=== PATIENT | female | born 1960 | race Hispanic/Latino ===

== ENCOUNTER 2025-04-07 13:02 | Emergency (ER) | payer MEDICARE ==
[~2025-04-07] VITALS: Ht 165.1 cm; Wt 68.0 kg
[2025-04-07 14:13] LABS: IMMATURE GRANULOCYTE ABSOLUTE 0.07 K/uL (0-1); NUCLEATED RED BLOOD CELLS 0.0 % (0.0-0.19); PLATELET COUNT (AUTO) 363 K/uL (130-400); RED BLOOD CELL COUNT(AUTO) 4.33 MIL/uL (4.00-5.50); RED CELL DISTRIBUTION WIDTH 13.6 % (11.0-15.5); WHITE BLOOD COUNT (AUTO) 10.2 K/uL (4.8-10.8)
[2025-04-07] MEDS: 0.9%NACL 1000ML 1,000 ML IV STA (14:15)
[2025-04-07] MEDS: FAMOTIDINE 20MG VIAL IV ONE (14:15)
[2025-04-07 14:24] LABS: CREATININE 0.8 mg/dL (0.5-1.0); GLOMERULAR FILTR. RATE CALC 81.0 mL/min (>90); GLUCOSE,RANDOM 115.0 mg/dL (70-105); SODIUM SERUM 136.0 mmol/L (136-145); UREA NITROGEN, BLOOD 15.0 mg/dL (7-18)
--- NOTE | 2025-04-07 14:32 | ERN ---
ED Note History of Present Illness Stated Complaint: NAUSEA/VOMITING Chief Complaint: Nausea,Vomiting,Diarrhea Time Seen by MD: 13:13 Time Seen by Midlevel: 13:15 Dictation: 64-year-old female complaining of epigastric burning sensation with nausea and vomiting. Patient states these symptoms started shortly after she ate beef with a potatoes. Patient also states she has a history of fissures in her stomach. States her last BM was yesterday, normal no melena or bright red stools and no watery stools. Allergies: Coded Allergies: No Known Drug Allergies (Unverified Allergy, Unknown, 04/07/25) Past Medical History Past Medical History: Other Additional Past Medical Hx: EPILEPSY Surgical History: None Review of System Dictation Constitutional: Negative for fever,chills, and weight loss Eyes: Negative for injury, pain,redness, and discharge ENT: Negative for injury,pain or swelling Cardiovascular: Negative for chest pain, palpitations, and edema Respiratory: Negative for shortness of breath, cough, and wheezing, Abdomen/GI: Abdominal pain, nausea and vomiting Back: Negative for injury and pain : Negative for injury, bleeding and discharge MS/Extremity: Negative for injury and deformity Skin: Negative for rash, and discoloration Neuro: Negative for headache, weakness, numbness, tingling, and seizure Psych: Negative for suicide ideation, homicidal ideation, and hallucinations Review of Systems: was completed Initial Vital Sign VS Vital Signs Date Time Temp Pulse Resp B/P (MAP) Pulse Ox O2 Delivery O2 Flow Rate FiO2 04/07/25 13:03 97.5 90 13 154/91 98 Room Air 0 04/07/25 13:34 21 Physical Exam Dictation General: awake, alert, NAD Head/Face: Normocephalic, atraumatic Eyes: PERRL, EOMI, vision at baseline ENT: oral cavity clear, TMs clear, no signs of infection Neck: Trachea midline, supple, no nuchal rigidity Cardiovascular: RRR, normal S1/S2, No MRGs, no JVD Respiratory: CTAB, no respiratory distress, No rales or wheezes Abdomen: Soft, non-tender, non-distended, normal bowel sounds, no guarding or rebound. Skin: Warm, dry, normal turgor, no rash MS/Extremity: Pulses equal, no cyanosis, neurovascular intact, FROM Neuro: COAx4, GCS 15, strength 5/5, CN 2-12 intact, normal cerebellar exam, normal gait, Psych: Normal behavior, mood, and affect normal Results (Laboratory/Radiology) Laboratory/Radiology Laboratory Tests Test 04/07/25 14:06 04/07/25 15:21 White Blood Count 10.2 K/uL (4.8-10.8) Red Blood Count 4.33 MIL/uL (4.00-5.50) Hemoglobin 13.3 g/dL (12.0-16.0) Hematocrit 40.8 % (36-48) Mean Corpuscular Volume 94.2 fL (79-99) Mean Corpuscular Hemoglobin 30.7 pg (27.0-33.0) Mean Corpuscular Hemoglobin Concent 32.6 g/dL (32.0-36.0) Red Cell Distribution Width 13.6 % (11.0-15.5) Platelet Count 363 K/uL (130-400) Mean Platelet Volume 8.0 fL (7.5-10.5) Immature Granulocyte % (Auto) 0.7 % (0-1) Neutrophils (%) (Auto) 83.3 % (40.0-77.0) H Lymphocytes (%) (Auto) 9.5 % (21.0-51.0) L Monocytes (%) (Auto) 6.2 % (3.0-13.0) Eosinophils (%) (Auto) 0.1 % (0.0-8.0) Basophils (%) (Auto) 0.2 % (0.0-5.0) Neutrophils # (Auto) 8.5 K/uL (1.8-7.7) H Lymphocytes # (Auto) 1.0 K/uL (1.0-4.8) Monocytes # (Auto) 0.6 K/uL (0.1-1.0) Eosinophils # (Auto) 0.01 K/uL (0.00-0.70) Basophils # (Auto) 0.02 K/uL (0.00-0.20) Absolute Immature Granulocyte (auto 0.07 K/uL (0-1) Nucleated Red Blood Cells 0.0 % (0.0-0.19) White Cell Morphology Comment See comments Sodium Level 136 mmol/L (136-145) Potassium Level 4.0 mmol/L (3.5-5.1) Chloride Level 103 mmol/L (101-111) Carbon Dioxide Level 27 mmol/L (21-32) Blood Urea Nitrogen 15 mg/dL (7-18) Creatinine 0.8 mg/dL (0.5-1.0) Glomerular Filtration Rate Calc 81 mL/min (>90) Random Glucose 115 mg/dL (70-105) H Total Calcium 8.2 mg/dL (8.5-10.1) L Total Bilirubin 0.7 mg/dL (0.2-1.0) Direct Bilirubin 0.1 mg/dL (0.0-0.3) Aspartate Amino Transf (AST/SGOT) 19 U/L (10-37) Alanine Aminotransferase (ALT/SGPT) 17 U/L (12-78) Alkaline Phosphatase 62 U/L (50-136) Troponin I High Sensitivity 5 ng/L (4-50) Total Protein 6.8 g/dL (6.0-8.3) Albumin 3.3 g/dL (3.5-5.0) L Lipase 41 U/L (16-77) Urine Color LIGHT-YELLOW (YELLOW) Urine Appearance CLEAR (CLEAR) Urine pH 6.5 (5.0-8.0) Urine Specific [place] 1.017 (1.001-1.031) Urine Protein NEGATIVE mg/dL (NEGATIVE) Urine Glucose (UA) NEGATIVE mg/dL (NEGATIVE) Urine Ketones NEGATIVE mg/dL (NEGATIVE) Urine Occult Blood NEGATIVE (NEGATIVE) Urine Nitrate NEGATIVE (NEGATIVE) Urine Bilirubin NEGATIVE mg/dL (NEGATIVE) Urine Urobilinogen 0.2 mg/dL (0.2-1.0) Urine Leukocyte Esterase NEGATIVE [place]/uL Labs Reviewed?: Yes EKG Comment: EKGs did not at 2:06 p.m.. Sinus tachycardia at a rate of 105. Biatrial enlargement. No STEMI interpreted by ER MD. X-RAY Comment: [place] [id number] [place] [id number] IMAGING REPORT Signed PATIENT: FRANCIS SCHROEDER MR#: [id number] : 1960 SEX: F AGE: 64 LOCATION: ED ORDER [id number] STATUS: REG ER [facility] REPORT#: [id number] SERVICE [id number] REASON: cough ORDERING PHYSICIAN: WILLOW CARRINGTON CNP PROCEDURE: CXR1VW - CHEST 1VW STUDY: X-RAY OF THE CHEST, 1 VIEW HISTORY: Cough. TECHNIQUE: A single frontal view of the chest is submitted for interpretation. COMPARISON: None provided. FINDINGS: Pulmonary dow: Patchy airspace opacities are present in the right middle lobe, compatible with an infectious or inflammatory process. The remainder of the lung dow are clear without focal consolidation elsewhere. No large pleural effusion or pneumothorax is identified. Cardiac silhouette: Cardiac silhouette is within normal limits in size and contour on this projection. Mediastinum and jennifer: Bilateral hilar fullness is present, more pronounced on the right, which may reflect hilar vascular prominence and/or reactive lymphadenopathy in the setting of infection. No obvious mediastinal widening is seen. Osseous structures: Visualized ribs, clavicles, scapulae, and thoracic spine show no acute fracture or destructive osseous lesion. Miscellaneous: Diaphragms and costophrenic angles are clear. No subdiaphragmatic free air is seen. No indwelling lines or tubes are identified. IMPRESSION: * Patchy airspace opacities in the right middle lobe, most consistent with pneumonia in the appropriate clinical context of cough; recommend clinical correlation and follow-up chest radiograph in 46 weeks to document resolution, particularly if symptoms persist or risk factors for nonresolving pneumonia are present. * Bilateral hilar fullness, right greater than left, likely reflecting vascular prominence and/or reactive hilar lymphadenopathy related to the acute parenchymal process; if hilar prominence persists after radiographic resolution of the infiltrate, further evaluation with chest CT could be considered based on clinical judgment. * No radiographic evidence of large pleural effusion or pneumothorax on this single-view chest radiograph. /[place] DICTATED BY: DIANE ROA MD DATE: 04/07/251602 ELECTRONICALLY SIGNED BY: DIANE ROA MD DATE: 04/07/251602 CT Scan Comment: [address] [id number] IMAGING REPORT Signed PATIENT: FRANCIS SCHROEDER MR#: [id number] : 1960 SEX: F AGE: 64 LOCATION: EDH ORDER 1401 STATUS: REG ER REPORT#: [id number] SERVICE 1359 REASON: n/v, hx of fissures ORDERING PHYSICIAN: WILLOW CARRINGTON CNP PROCEDURE: ABD PEL W - CT ABDOMEN/PELVIS W/CONTRAST EXAM: CT SCAN OF THE ABDOMEN AND PELVIS WITH CONTRAST Clinical statement: Nausea and vomiting; history of fissures. STUDY PROTOCOL: CT radiation dose protocol was performed in accordance with the principles of ALARA. A multislice CT scan of the abdomen and pelvis was performed with intravenous contrast. Sections were obtained from the diaphragms to the inguinal region. Study quality is adequate without significant motion or streak artifact. RADIATION DOSE: CTDIvol 14.20 mGy; DLP 595.40 mGycm. CONTRAST: Standard dose of intravenous contrast administered. COMPARISON: None provided. FINDINGS: LUNG BASE: The visualized lung bases are clear. No pleural effusion is seen. LIVER: Normal in size and contour with homogeneous enhancement. No focal hepatic lesion or calcification is identified. No intrahepatic biliary ductal dilatation. Portal vein and hepatic veins are patent with normal caliber. GALL BLADDER: Gall bladder is normally distended with non-thickened wall and smooth margins. No cholelithiasis, intraluminal mass, or pericholecystic fluid. PANCREAS: Normal in size, contour, and enhancement. No pancreatic duct dilatation, mass, peripancreatic stranding, or fluid collection. SPLEEN: Normal in size with homogeneous enhancement and no focal lesion. KIDNEYS: Both kidneys enhance symmetrically and are normal in size and contour. No hydronephrosis, nephrolithiasis, or solid renal mass. Non-obstructive parapelvic cysts are present bilaterally. Visualized ureters are normal in caliber without obstructing calculus or intraluminal filling defect. GIT /T/ PERITONEAL CAVITY: Stomach is decompressed to mildly distended without focal wall thickening. Small bowel loops are normal in caliber with no evidence of obstruction or focal inflammatory change. Colon is normal in caliber without wall thickening or pericolonic fat stranding. Sigmoid colon diverticulosis is present without CT evidence of diverticulitis. The appendix is visualized, normal in caliber, and without periappendiceal inflammatory change. No free intraperitoneal air, free fluid, or mesenteric edema. LYMPHNODES: No pathologic abdominal or pelvic lymphadenopathy by size criteria. RETROPERITONEUM: Adrenal glands are normal in size and morphology without nodules. Abdominal aorta and iliac arteries are normal in caliber with mild aortoiliac atherosclerotic calcification. Inferior vena cava is patent and normal in caliber. PELVIS: Urinary bladder is appropriately distended with smooth contour, no wall thickening, and no intraluminal filling defect. Visualized pelvic reproductive organs are unremarkable for expected anatomy and age. No pelvic free fluid or mass. MUSCULOSKELETAL: Severe anterior wedge compression deformity of the T12 vertebral body is noted, with mild osteopenia and mild degenerative changes in the visualized spine. No acute displaced pelvic or hip fracture is identified. OTHER: Visualized abdominal wall and paraspinal soft tissues are unremarkable without hernia, focal mass, or fluid collection. IMPRESSION: * No CT evidence of acute intra-abdominal or pelvic pathology to explain nausea and vomiting; specifically, no bowel obstruction, perforation, appendicitis, pancreatitis, cholecystitis, or colitis is identified. Management should be guided by the clinical evaluation, laboratory studies, and symptom course rather than by imaging findings. * Sigmoid colon diverticulosis without CT evidence of acute diverticulitis; routine clinical management and counseling on bowel habits and fiber intake may be appropriate, with imaging reassessment only if focal left lower quadrant pain, fever, or leukocytosis develop. * Bilateral non-obstructive parapelvic renal cysts without hydronephrosis or nephrolithiasis; these are incidental and typically require no specific imaging follow-up in the absence of new renal symptoms or hematuria. * Severe anterior wedge compression deformity of T12 with mild osteopenia and mild degenerative changes of the spine. Recommend correlation with history of back pain and prior imaging; in the absence of known high-energy trauma, bone mineral density assessment (DEXA) and evaluation for underlying osteoporosis or metabolic bone disease should be considered. * Mild aortoiliac atherosclerotic calcification, reflecting underlying systemic atherosclerosis; correlate with cardiovascular risk factors and ongoing risk-factor modification (blood pressure, lipids, diabetes, and smoking status). /[place] DICTATED BY: DIANE ROA MD DATE: 04/07/251700 ELECTRONICALLY SIGNED BY: DIANE ROA MD DATE: 12/29/25 1701 ED Course ED Course Orders Procedure Category Date Status Time Cbc With Differential LAB 04/07/25 Complete 13:59 Basic Metabolic Panel LAB 04/07/25 Complete 13:59 Lipase LAB 04/07/25 Complete 13:59 Hepatic Function Panel LAB 04/07/25 Complete 13:59 Urinalysis Profile LAB 04/07/25 Complete 13:59 Troponin I High LAB 04/07/25 Complete Sensitivity 13:59 12 Lead Ekg Tracing- EKG 04/07/25 Complete Technical 13:59 Chest 1vw RAD 04/07/25 Resulted 13:59 Ct Abdomen/Pelvis CT 04/07/25 Resulted W/Contrast 13:59 0.9%Nacl 1000ml (Ns PHA 04/07/25 Complete 1000ml) 13:59 Ondansetron 4mg Inj PHA 04/07/25 Complete (Zofran 4mg Inj) 14:00 Famotidine 20mg Vial PHA 04/07/25 Complete (Pepcid 20mg Vial) 14:00 Iohexol (Omnipaque) PHA 04/07/25 Complete 14:36 *Nursing CPOE 04/07/25 Transmitted Communication: 16:27 Lidocaine Hcl 2% PHA 04/07/25 Logged Viscous (Lidocaine Hcl 17:00 Mag/Alum/Simeth 30ml PHA 04/07/25 Logged (Maalox Plus 30ml) 17:00 Current Medications Medications (Trade) Dose Ordered Sig/Maya Route PRN Reason Start Time Stop Time Status Last Admin Dose Admin Al Hydroxide/Mg Hydroxide (MAALox PLUS 30ML) 30 ml ONCE ONCE PO 04/07/25 17:00 04/07/25 17:01 UNV Famotidine (Pepcid 20mg Vial) 20 mg ONCE ONCE IV 04/07/25 14:00 04/07/25 14:04 DC 04/07/25 14:15 Iohexol (Omnipaque) 75 ml STK-MED ONCE IV 04/07/25 14:36 04/07/25 14:36 DC Lidocaine HCl (Lidocaine HCl 2% Viscous) 10 ml ONCE ONCE PO 04/07/25 17:00 04/07/25 17:01 UNV Ondansetron HCl (zoFRAN 4MG INJ) 4 mg ONCE ONCE IVP 04/07/25 14:00 04/07/25 14:04 DC 04/07/25 14:15 Sodium Chloride 1,000 ml @ 1,000 mls/hr Q1H STAT IV 04/07/25 13:59 04/07/25 14:58 DC 04/07/25 14:15 Vital Signs Date Time Temp Pulse Resp B/P (MAP) Pulse Ox O2 Delivery O2 Flow Rate FiO2 04/07/25 16:27 97.5 114 15 133/85 100 Room Air* 0 21 04/07/25 13:34 97.5 90 13 154/91 98 Room Air* 0 21 04/07/25 13:03 97.5 90 13 154/91 98 Room Air 0 Medical Decision Making MDM MDM: 64-year-old female complaining of epigastric burning sensation with nausea and vomiting. Patient states these symptoms started shortly after she ate beef with a potatoes. Patient also states she has a history of fissures in her stomach. States her last BM was yesterday, normal no melena or bright red stools and no watery stools. CBC shows no leukocytosis, no anemia, no thrombocytopenia. Chemistry shows no electrolyte abnormality. Normal kidney function. No transaminitis. Lipase within normal range. Troponin is negative. EKGs shows no ST elevations or dysrhythmias. UA shows no evidence of urinary tract infection. Chest x-ray shows possible pneumonia playing however patient is not complaining of any cough or shortness a breath patient will be still give him prophylactic antibiotics to prevent any early signs of pneumonia. Follow up with the boys patient received fluids, Zofran and Pepcid, patient states he feels much better, able to tolerate p.o. challenge. Patient we will discharge patient with azithromycin for the pneumonia, Zofran and Pepcid. Differential diagnosis: Gastroenteritis, gastritis, GERD, pancreatitis Rationale: Tests considered and ordered secondary to shared decision making include: Previous outside records reviewed: Old ER visits. Risk of complication and/or morbidity or mortality of patient management: None Medications-Per medication reconciliation Need for hospitalization: Patient does not meet criteria for hospitalization. Need for emergency major/minor surgery: No There are no social concerns with this patient. Prescription drug management Prescriptions will include symptomatic care Patient's prior external medical records from other ER visits were reviewed by me as indicated. Prior testing and results from previous visits were reviewed. Prior tests were taken into account with medical decision making and resource utilization, independent historian/historians were used to obtain complete medical history. I independently interpreted the test that were performed, results were reviewed by me and considered findings on radiology if ordered. Medical management and examination interpretation discussions were had by me with other qualified healthcare professionals as indicated for the patient's care. DX & DISP Disposition: Discharge Departure Impression: Primary Impression: Gastroenteritis Additional Impression: Pneumonia Condition: Stable Scripts Azithromycin (Azithromycin) 250 Mg Tablet 1 TAB PO AD for 5 Days, #6 TAB 0 Refills 2 the first day followed by 1 for days 2-5 Prov: WILLOW CARRINGTON CNP 04/07/25 Ondansetron (Ondansetron Odt) 4 Mg Tab.rapdis 4 MG PO Q6HPRN PRN for nausea for 3 Days, #9 TAB 0 Refills Prov: WILLOW CARRINGTON CNP 04/07/25 Additional Instructions: Avoid eating spicy, greasy, fatty foods. Take the antibiotic with food to avoid any GI upset. Use the nausea medication as needed. Return to the hospital if you are unable to retain any food or fluids despite taking your medication for the nausea. Follow up with your primary doctor in 2-3 days. Referrals: GABI RUSSO MD (PCP) Time of Disposition: 16:48 I have reviewed the case, and I agree with, Diagnosis and Plan WILLOW CARRINGTON CNP Apr 07, 2025 14:32
[2025-04-07 14:33] LABS: ASPARTATE AMINOTRANSFERASE 19.0 U/L (10-37); TOTAL PROTEIN, SERUM 6.8 g/dL (6.0-8.3)
[2025-04-07] MEDS ORDERED: IOHEXOL-350 75 ML VIAL IV ONE (14:36)
--- NOTE | 2025-04-07 15:04 | EKG ---
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
--- NOTE | 2025-04-07 15:05 | HMCIMG ---
STUDY: X-RAY OF THE CHEST, 1 VIEW HISTORY: Cough. TECHNIQUE: A single frontal view of the chest is submitted for interpretation. COMPARISON: None provided. FINDINGS: Pulmonary dow: Patchy airspace opacities are present in the right middle lobe, compatible with an infectious or inflammatory process. The remainder of the lung dow are clear without focal consolidation elsewhere. No large pleural effusion or pneumothorax is identified. Cardiac silhouette: Cardiac silhouette is within normal limits in size and contour on this projection. Mediastinum and jennifer: Bilateral hilar fullness is present, more pronounced on the right, which may reflect hilar vascular prominence and/or reactive lymphadenopathy in the setting of infection. No obvious mediastinal widening is seen. Osseous structures: Visualized ribs, clavicles, scapulae, and thoracic spine show no acute fracture or destructive osseous lesion. Miscellaneous: Diaphragms and costophrenic angles are clear. No subdiaphragmatic free air is seen. No indwelling lines or tubes are identified. IMPRESSION: * Patchy airspace opacities in the right middle lobe, most consistent with pneumonia in the appropriate clinical context of cough; recommend clinical correlation and follow-up chest radiograph in 46 weeks to document resolution, particularly if symptoms persist or risk factors for nonresolving pneumonia are present. * Bilateral hilar fullness, right greater than left, likely reflecting vascular prominence and/or reactive hilar lymphadenopathy related to the acute parenchymal process; if hilar prominence persists after radiographic resolution of the infiltrate, further evaluation with chest CT could be considered based on clinical judgment. * No radiographic evidence of large pleural effusion or pneumothorax on this single-view chest radiograph. /[place]
[2025-04-07 15:29] LABS: APPEARANCE,URINE CLEAR (CLEAR); GLUCOSE, URINE (UA) NEGATIVE (NEGATIVE); LEUKOCYTE ESTERASE ,URINE NEGATIVE Leu/uL (NEGATIVE); NITRATE,URINE NEGATIVE (NEGATIVE); OCCULT BLOOD,URINE NEGATIVE (NEGATIVE)
[2025-04-07 15:31] LABS: ADD UA MICROSCOPIC NO
--- NOTE | 2025-04-07 16:00 | HMCIMG ---
EXAM: CT SCAN OF THE ABDOMEN AND PELVIS WITH CONTRAST Clinical statement: Nausea and vomiting; history of fissures. STUDY PROTOCOL: CT radiation dose protocol was performed in accordance with the principles of ALARA. A multislice CT scan of the abdomen and pelvis was performed with intravenous contrast. Sections were obtained from the diaphragms to the inguinal region. Study quality is adequate without significant motion or streak artifact. RADIATION DOSE: CTDIvol 14.20 mGy; DLP 595.40 mGycm. CONTRAST: Standard dose of intravenous contrast administered. COMPARISON: None provided. FINDINGS: LUNG BASE: The visualized lung bases are clear. No pleural effusion is seen. LIVER: Normal in size and contour with homogeneous enhancement. No focal hepatic lesion or calcification is identified. No intrahepatic biliary ductal dilatation. Portal vein and hepatic veins are patent with normal caliber. GALL BLADDER: Gall bladder is normally distended with non-thickened wall and smooth margins. No cholelithiasis, intraluminal mass, or pericholecystic fluid. PANCREAS: Normal in size, contour, and enhancement. No pancreatic duct dilatation, mass, peripancreatic stranding, or fluid collection. SPLEEN: Normal in size with homogeneous enhancement and no focal lesion. KIDNEYS: Both kidneys enhance symmetrically and are normal in size and contour. No hydronephrosis, nephrolithiasis, or solid renal mass. Non-obstructive parapelvic cysts are present bilaterally. Visualized ureters are normal in caliber without obstructing calculus or intraluminal filling defect. GIT /T/ PERITONEAL CAVITY: Stomach is decompressed to mildly distended without focal wall thickening. Small bowel loops are normal in caliber with no evidence of obstruction or focal inflammatory change. Colon is normal in caliber without wall thickening or pericolonic fat stranding. Sigmoid colon diverticulosis is present without CT evidence of diverticulitis. The appendix is visualized, normal in caliber, and without periappendiceal inflammatory change. No free intraperitoneal air, free fluid, or mesenteric edema. LYMPHNODES: No pathologic abdominal or pelvic lymphadenopathy by size criteria. RETROPERITONEUM: Adrenal glands are normal in size and morphology without nodules. Abdominal aorta and iliac arteries are normal in caliber with mild aortoiliac atherosclerotic calcification. Inferior vena cava is patent and normal in caliber. PELVIS: Urinary bladder is appropriately distended with smooth contour, no wall thickening, and no intraluminal filling defect. Visualized pelvic reproductive organs are unremarkable for expected anatomy and age. No pelvic free fluid or mass. MUSCULOSKELETAL: Severe anterior wedge compression deformity of the T12 vertebral body is noted, with mild osteopenia and mild degenerative changes in the visualized spine. No acute displaced pelvic or hip fracture is identified. OTHER: Visualized abdominal wall and paraspinal soft tissues are unremarkable without hernia, focal mass, or fluid collection. IMPRESSION: * No CT evidence of acute intra-abdominal or pelvic pathology to explain nausea and vomiting; specifically, no bowel obstruction, perforation, appendicitis, pancreatitis, cholecystitis, or colitis is identified. Management should be guided by the clinical evaluation, laboratory studies, and symptom course rather than by imaging findings. * Sigmoid colon diverticulosis without CT evidence of acute diverticulitis; routine clinical management and counseling on bowel habits and fiber intake may be appropriate, with imaging reassessment only if focal left lower quadrant pain, fever, or leukocytosis develop. * Bilateral non-obstructive parapelvic renal cysts without hydronephrosis or nephrolithiasis; these are incidental and typically require no specific imaging follow-up in the absence of new renal symptoms or hematuria. * Severe anterior wedge compression deformity of T12 with mild osteopenia and mild degenerative changes of the spine. Recommend correlation with history of back pain and prior imaging; in the absence of known high-energy trauma, bone mineral density assessment (DEXA) and evaluation for underlying osteoporosis or metabolic bone disease should be considered. * Mild aortoiliac atherosclerotic calcification, reflecting underlying systemic atherosclerosis; correlate with cardiovascular risk factors and ongoing risk-factor modification (blood pressure, lipids, diabetes, and smoking status). /[place]
[2025-04-07] MEDS ORDERED: AZIT250T9 PO (16:49)
[2025-04-07] MEDS ORDERED: ONDA-243 PO (16:49)
[2025-04-07] MEDS: MAG/ALUM/SIMETH 30 ML UDCUP PO SCH (16:54)
[2025-04-07] MEDS: LIDOCAINE HCL 2% VISCOUS 15 ML UDCUP PO SCH (16:55)
--- NOTE | 2025-04-07 16:58 | NUR ---
PATIENT REFUSED GI COCKTAIL, PATIENT WAS EDUCATED ON THE USE OF EACH MEDICATION (LIDOCAINE AND MAALOX). PATIENT VERBALIZED UNDERSTANDING AND STATED "I DON'T WANT TO GET SICK". WILLOW, MANAGER GARAGE WAS NOTIFED.
[2025-04-07 17:17] VITALS: BP 133/72; PULSE 100; RESP 13; TEMP 97.5; O2SAT 99
== END 2025-04-07 17:18 | disposition home or self-care (01) ==
LOC: EDH 13:02
DX: J18.9 Pneumonia, unspecified organism (principal); K52.9 Noninfective gastroenteritis and colitis, unspecified; E11.9 Type 2 diabetes mellitus without complications
CPT/HCPCS: 99285; 74177; 96374; 71045; 96375; 80076; 84484; 80048; 83690; 85025; 81003; 36415; 93005; J1308; J7030; J2405; Q9967